=== PATIENT | female | born 1990 | race African-American/Black ===

== ENCOUNTER 2018-11-11 23:39 | Inpatient (IN) | payer OTHER ==
[~2018-11-11 23:39] MED LIST: DEXTROSE 5%-LACTATED RINGERS 1,000 ML IV SCH
[2018-11-12] MEDS ORDERED: CLINDAMYCIN 900 MG PREMIX IVPB 900 MG/50 ML BAG IVPB ONE (01:30)
[2018-11-12 02:31] LABS: BASO % 0.9 % (0-2.0); EOS % 0.3 % (0-4.5); HEMATOCRIT 32.2 % (32.4-45.2); HEMOGLOBIN 10.7 GM/dL (10.7-15.3); LYMPH % 22.3 % (8-40); MCH 28.6 pg (25.7-33.7); MCHC 33.3 g/dl (32.0-36.0); MEAN CELL VOLUME 86.1 fl (80-96); MEAN PLT VOLUME 10.2 fl (7.5-11.1); MONO % 15.5 % (3.8-10.2); PLATELET COUNT 241 K/MM3 (134-434); RBC 3.74 M/mm3 (3.60-5.2); RDW 12.6 % (11.6-15.6); WHITE BLOOD COUNT 7.9 K/mm3 (4.0-10.0)
[2018-11-12 02:48] LABS: INR 0.89 (0.83-1.09); PROTHROMBIN TIME (PATIENT) 10.5 SEC (9.7-13.0)
[2018-11-12 02:51] LABS: ACTIVATED PTT 30.3 SECONDS (25.2-36.5)
[2018-11-12 02:55] LABS: BLOOD UREA NITROGEN 6.5 mg/dL (7-18); CALCIUM 8.8 mg/dL (8.5-10.1); CREATININE 0.5 mg/dL (0.55-1.3)
[2018-11-12 03:51] VITALS: BMI 30.2
[2018-11-12] MEDS ORDERED: BUTORPHANOL TARTRATE 1 MG/ML VIAL ONE ×3 (04:02→08:33)
[2018-11-12] MEDS ORDERED: PROMETHAZINE HCL 25 MG/1 ML VIAL ONE ×2 (04:02→08:33)
[2018-11-12] MEDS ORDERED: BUTORPHANOL TARTRATE 1 MG/ML VIAL IVPB ONE ×2 (04:15→10:45)
[2018-11-12] MEDS ORDERED: PROMETHAZINE HCL 25 MG/1 ML VIAL IVPB ONE ×2 (04:15→10:45)
[2018-11-12] MEDS ORDERED: OXYTOCIN 30 UNITS in 0.9% NS 30 UNIT/500 ML INFUS.BAG IVPB ONE (06:21)
[2018-11-12] MEDS ORDERED: OXYTOCIN 30 UNITS in 0.9% NS 30 UNIT/500 ML INFUS.BAG IVPB SCH (06:45)
[2018-11-12] MEDS ORDERED: CLINDAMYCIN 600MG PREMIX IVPB 600 MG/50 ML BAG IVPB SCH (07:30)
[2018-11-12] MEDS ORDERED: OXYTOCIN 20 UNITS in 0.9% NS 20 UNIT/1,000 ML INFUS.BAG IV ONE ×2 (08:36→13:23)
[2018-11-12] MEDS ORDERED: LIDOCAINE HCL 1% PRESERVATIVE FREE - 30ML VIAL ONE (08:36)
--- NOTE | 2018-11-12 09:20 | HP ---
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: No: Alzheimer's, CVA, Dementia, Migraine, Multiple Sclerosis, Peripheral Neuropathy, Parkinson's, Seizure, Syncope, TIA, Vertigo, Other Cardiovascular: No: AFIB, Aneurysm, Aortic Insufficiency, Aortic Stenosis, CAD, CHF, Deep Vein Thrombosis, HTN, Hyperlipdemia, UT, Mitral Insufficiency, Mitral Stenosis, Murmur, Pulmonary Hypertension, Other Pulmonary: No: Asthma, Bronchitis, Cancer, COPD, O2 Dependent, Pneumonia, Previously Intubated, Pulmonary Embolus, Pulmonary Fibrosis, Sleep Apnea, Other Gastrointestinal: No: Ascites, Cancer, Constipation, Crohn's Disease, Diverticulitis, Diverticulosis, Esophageal Varices, Gastritis, GERD, GI Bleed, Hemorrhoids, Hiatal Hernia, Inflamatory Bowel Disease, Irritable Bowel Disease, Pancreatitis, Peptic Ulcer Disease, Ulcerative Colitis, Other Hepatobiliary: No: Cirrhosis, Cholelithiasis, Cholecystitis, Choledocholithiasis , Hepatitis A, Hepatitis B, Hepatitis C, Other Renal/: No: Renal Failure, Renal Inusuff, BPH, Cancer, Hematuria, Hemodialysis , Neurogenic Bladder, Renal Calculi, UTI, Other Reproductive: No: Ectopic , Endometriosis, Fibroids, PID, Polycystic Ovary Syndrome, Postmenopausal, Other ...: 2 ...Para: 0 ...Term: 0 ...: 0 ...Spon : 0 ...Induced : 1 ...Multiple Gestation: 0 ... Weeks Gestation by Dates: 39.2 ...EDC by Dates: 11/16/18 Heme/Onc: No: Anemia, B12 Deficiency, Bleeding Disorder, Cancer, Current Chemotherapy, Current Radiation Therapy, Hemochromatosis, Hypercoaguable State, Myeloproliferative Synd, Sickle Cell Disease, Sickle Cell Trait, Thrombocytopenia, Other Infectious Disease: No: AIDS, C-Diff, Herpes Zoster, HIV, MRSA, STD's, Tuberculosis, VREF, Other Psych: No: Addictions, Anxiety, Bipolar, Depression, Panic, Psychosis, Schizophrenia, Other Musculoskeletal: No: Bursitis, Chronic low back pain, Hemiparesis, Hemiplegia, Osteoarthritis, Paraplegia, Other Rheumatology: No: Fibromyalgia, Gout, Lupus, Rheumatoid Arthritis, Sarcoidosis, Vasculitis, Other ENT: No: Allergic Rhinitis, Sinusitis, Other Endocrine: No: [place]'s Disease, [place]'s Disease, Diabetes Insipidus, Diabetes Mellitus, Hyperparathyroidism, Hyperthyroidism, Hypothyroidism, Osteopenia, SIADH, Other Dermatology: No: Basal Cell, Cellulitis, Eczema, Melanoma, Psoriasis, Squamous Cell, Other - Past Surgical History Past Surgical History: No: None, AAA Repair, AICD, Amputation, Appendectomy, Arthrosocopy, AV Fistula/Graft, Bariatric Surgery, Breast Biopsy, Bypass, CABG, Carotid Endarterectomy, Cataract Removal, Cholecystectomy, Colectomy, Colonoscopy, Colostomy, Craniotomy, , Cystectomy, Hernia Repair, Hysterectomy, Ileal Conduit, Ileosotomy, Joint Replacement, Kidney Transplant, Laminectomy, Liver Transplant, Mastectomy, Nephrectomy, Oopherectomy, Orchiectomy, Permanent Pacemaker, Prostatectomy, Splenectomy, Stent, Thoracotomy , TURP, Tonsillectomy, Tubal Ligation, Upper Endoscopy, Valve Replacement, Vasectomy, Vein Stripping/Ligation Hx Myomectomy: No Hx Transabdominal Cerclage: No - Advance Directives Advance Directives: No: Living Will, Health Care Proxy, DNR, Organ Donor, Tissue Donor, MOLST - Smoking History Smoking history: Never smoked Have you smoked in the past 12 months: No - Alcohol/Substance Use Hx Alcohol Use: No History of Substance Use: reports: None - Social History Usual Living Arrangement: Yes: With Spouse Do you think of yourself as: Declined to answer ADL: Independent History of Recent Travel: No Home Medications - Allergies Allergies/Adverse Reactions: Allergies Allergy/AdvReac Type Severity Reaction Status Date / Time amoxicillin Allergy Verified 11/12/18 01:46 - Home Medications Home Medications: Ambulatory Orders Vitamins (Sjr) - 1 tab PO DAILY 11/12/18 Family Medical History Family History: Unable to Obtain Review of Systems - Review of Systems Constitutional: reports: No Symptoms Eyes: reports: No Symptoms HENT: reports: No Symptoms Neck: reports: No Symptoms Cardiovascular: reports: No Symptoms Respiratory: reports: No Symptoms Gastrointestinal: reports: No Symptoms Genitourinary: reports: No Symptoms Breasts: reports: No Symptoms Reported Musculoskeletal: reports: No Symptoms Integumentary: reports: No Symptoms Neurological: reports: No Symptoms Endocrine: reports: No Symptoms Hematology/Lymphatic: reports: No Symptoms Psychiatric: reports: No Symptoms Physical Exam - Maternity Vital Signs: Vital Signs Temperature 98.3 F 11/12/18 08:00 Pulse Rate 78 11/12/18 08:00 Respiratory Rate 20 11/12/18 08:00 Blood Pressure 119/65 11/12/18 08:00 O2 Sat by Pulse Oximetry (%) Constitutional: Yes: Well Nourished, No Distress, Calm Eyes: Yes: WNL, Conjunctiva Clear, EOM Intact HENT: Yes: WNL, Atraumatic, Normocephalic Neck: Yes: WNL, Supple, Trachea Midline Cardiovascular: Yes: WNL, Regular Rate and Rhythm Lungs: Clear to auscultation Breast(s): Yes: WNL - Abdominal Exam/OB Fundal Height: 38 Number of Fetuses: Single Presentation: Vertex Contractions: Yes Regularity: Irregular Intensity: Mild/Mod Monitor Mode: External Heart Rate Location: [facility] Category: I Accelerations: Uniform Decelerations: None - Vaginal Exam/OB Vaginal Bleediing: No Speculum Exam: Yes Dilatation (cm): 2 Amniotic Membrane Status: Ruptured Amniotic Fluid: Yes: Clear Presentation: Vertex/Position Station: -1 - Physical Exam Musculoskeletal: Yes: WNL Extremities: Yes: WNL Edema: Yes Edema: LUE: 1+, RUE: 1+, LLE: 1+, RLE: 1+ Integumentary: Yes: WNL Deep Tendon Reflex Grade: Normal +2 ...Motor Strength: WNL Psychiatric: Yes: WNL, Alert, Oriented - Labs Lab Results: CBC, BMP 11/12/18 02:10 11/12/18 02:10 Assessment/Plan for labor
--- NOTE | 2018-11-12 09:25 | PN ---
Progress Note (short form) - Note Progress Note: 630 am 3 cm , 80 %, -1, continue laboring w pitocin, stadol given,
--- NOTE | 2018-11-12 09:26 | PN ---
Progress Note (short form) - Note Progress Note: 830 am, 8 cm, 100%, +1 , stadol given, continue pitocin
[2018-11-12] MEDS ORDERED: METHYLERGONOVINE MALEATE 0.2 MG/1 ML AMP IM PRN (10:19)
[2018-11-12] MEDS ORDERED: oxyCODONE HCL 5 MG TABLET PO PRN (10:19)
[2018-11-12] MEDS ORDERED: IBUPROFEN 600 MG TABLET (FP) PO PRN (10:19)
[2018-11-12] MEDS ORDERED: BISACODYL 10 MG SUPP.RECT RC PRN (10:19)
[2018-11-12] MEDS ORDERED: BENZOCAINE 28 GM HEMORRHOIDAL OINTMENT TP PRN (10:19)
[2018-11-12] MEDS ORDERED: BENZOCAINE 20% 57 GM BOTTLE TP PRN (10:19)
[2018-11-12] MEDS ORDERED: ACETAMINOPHEN 325 MG TABLET (FP) PO PRN (10:19)
[2018-11-12] MEDS ORDERED: WITCH HAZEL 50% (TUCKS) 40 PAD/JAR PAD TP PRN (10:19)
--- NOTE | 2018-11-12 10:26 | PN ---
Delivery - Delivery Vaginal Delivery: No Problems Type of Anesthesia: Local Episiotomy/Laceration: 1st degree EBL (cc): 450 Delivery, Single - Stages of Labor Date 1st Stage Initiatied: 11/11/18 Time 1st Stage Initiated: 22:00 Date 2nd Stage Initiated: 11/12/18 Time 2nd Stage Initiated: 09:30 Date of Delivery: 11/12/18 Time of Delivery: 09:58 Date Placenta Delivered: 11/12/18 Time Placenta Delivered: 10:10 Placenta: Yes: Spontaneous - Condition of Infant Language Specialist/Farm Technician Present: No Infant Gender: Female Position: Right, OA Total Hours ROM (Hrs/Mins): 13 hr - 1 Minute Total Score: 9 5 Minutes Total Score: 9 - Reynolds Feeding Plan Initial Plan: Elected not to breastfeed exclusively throughout hospitalization Benefits of Exclusively reinforced: Yes Remarks - Remarks Remarks: no epidural, no complications
[2018-11-12] MEDS ORDERED: OXYTOCIN 20 UNITS in 0.9% NS 20 UNIT/1,000 ML INFUS.BAG IV SCH (10:30)
[2018-11-13 07:19] LABS: BASO % 0.1 % (0-2.0); EOS % 0.4 % (0-4.5); HEMATOCRIT 26.3 % (32.4-45.2); HEMOGLOBIN 8.6 GM/dL (10.7-15.3); MCH 28.4 pg (25.7-33.7); MCHC 32.8 g/dl (32.0-36.0); MEAN CELL VOLUME 86.5 fl (80-96); MEAN PLT VOLUME 9.9 fl (7.5-11.1); MONO % 12.4 % (3.8-10.2); NEUT % 71.1 % (42.8-82.8); PLATELET COUNT 209 K/MM3 (134-434); RBC 3.04 M/mm3 (3.60-5.2); WHITE BLOOD COUNT 12.4 K/mm3 (4.0-10.0)
[2018-11-13] MEDS ORDERED: DIPHTH,PERTUSS(ACELL),TET 0.5 ML DISP.SYRIN IM ONE (10:00)
--- NOTE | 2018-11-13 19:28 | PN ---
Post Progress Note Post Day: 2 Type of Delivery: Vital Signs: Vital Signs Temperature 98.8 F 11/13/18 09:00 Pulse Rate 92 H 11/13/18 09:00 Respiratory Rate 20 11/13/18 09:00 Blood Pressure 102/59 L 11/13/18 09:00 O2 Sat by Pulse Oximetry (%) 99 11/12/18 11:00 Breast Exam: Yes: Soft Uterus: Yes: Fundus Firm Abdomen/GI: Yes: Abdomen soft, Passing flatus, Tolerating PO Lochia: Yes: Serosa Lochia, amount: Small Extremities: Yes: Calves non-tender Perineum: Yes: Laceration Activity: Ambulating - Labs Labs: CBC WBC 12.4 K/mm3 (4.0-10.0) H 11/13/18 06:25 RBC 3.04 M/mm3 (3.60-5.2) L 11/13/18 06:25 Hgb 8.6 GM/dL (10.7-15.3) L 11/13/18 06:25 Hct 26.3 % (32.4-45.2) L D 11/13/18 06:25 MCV 86.5 fl (80-96) 11/13/18 06:25 MCH 28.4 pg (25.7-33.7) 11/13/18 06:25 MCHC 32.8 g/dl (32.0-36.0) 11/13/18 06:25 RDW 13.0 % (11.6-15.6) 11/13/18 06:25 Plt Count 209 K/MM3 (134-434) 11/13/18 06:25 MPV 9.9 fl (7.5-11.1) 11/13/18 06:25 Absolute Neuts (auto) 8.8 K/mm3 (1.5-8.0) H 11/13/18 06:25 Neutrophils % 71.1 % (42.8-82.8) 11/13/18 06:25 Lymphocytes % 16.0 % (8-40) D 11/13/18 06:25 Monocytes % 12.4 % (3.8-10.2) H 11/13/18 06:25 Eosinophils % 0.4 % (0-4.5) 11/13/18 06:25 Basophils % 0.1 % (0-2.0) 11/13/18 06:25 Nucleated RBC % 0 % (0-0) 11/13/18 06:25 Assessment/Plan dc pt home tomorrow
--- NOTE | 2018-11-13 19:31 | DS ---
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 Vital Signs: Vital Signs Temperature 98.8 F 11/13/18 09:00 Pulse Rate 92 H 11/13/18 09:00 Respiratory Rate 20 11/13/18 09:00 Blood Pressure 102/59 L 11/13/18 09:00 O2 Sat by Pulse Oximetry (%) 99 11/12/18 11:00 Constitutional: Yes: Well Nourished, No Distress, Calm Eyes: Yes: WNL, Conjunctiva Clear, EOM Intact HENT: Yes: WNL, Atraumatic, Normocephalic Neck: Yes: WNL, Supple, Trachea Midline Cardiovascular: Yes: WNL, Regular Rate and Rhythm Respiratory: Yes: WNL, Regular, CTA Bilaterally Gastrointestinal: Yes: WNL, Normal Bowel Sounds, Soft ...Rectal Exam: Yes: WNL Renal/: Yes: WNL Pelvis: Yes: WNL External Genitalia: Yes: Normal Internal Exam Deferred: Yes Vaginal Exam: Yes: Normal Cervix: Yes: Normal Uterus: Yes: Normal ....Post : Yes: Uterus firm, Uterus non-tender Breast(s): Yes: WNL Musculoskeletal: Yes: WNL Extremities: Yes: WNL Edema: Yes Edema: LUE: 1+, RUE: 1+, LLE: 1+, RLE: 1+ Integumentary: Yes: WNL Wound/Incision: Yes: Clean/Dry, Well Approximated Neurological: Yes: WNL, Alert, Oriented ...Motor Strength: WNL Psychiatric: Yes: WNL, Alert, Oriented Labs: CBC, BMP 11/13/18 06:25 11/12/18 02:10 Delivery - Delivery Vaginal Delivery: No Problems Type of Anesthesia: Local Episiotomy/Laceration: Perineal Extension/lac, 1st degree EBL (cc): 450 Delivery, Single - Stages of Labor Date 1st Stage Initiatied: 11/11/18 Time 1st Stage Initiated: 22:00 Date 2nd Stage Initiated: 11/12/18 Time 2nd Stage Initiated: 09:30 Date of Delivery: 11/12/18 Time of Delivery: 09:58 Time Placenta Delivered: 10:10 Placenta: Yes: Spontaneous - Condition of Clockmaker Apprentice/French Cord Binder Present: No Gender: Female Weight: 2.892 kg Position: Right, OA Total Hours ROM (Hrs/Mins): 13 hr - 1 Minute Total Score: 9 5 Minutes Total Score: 9 - Feeding Plan Initial Plan: Elected not to breastfeed exclusively throughout hospitalization Benefits of Exclusively reinforced: Yes Discharge Summary Problems reviewed: Yes Reason For Visit: LABOR Procedures: Principal: Hospital Course: good Plan of Treatment: dc pt home tomorrow Condition: Good - Instructions Diet, Activity, Other Instructions: regular Disposition: HOME - Home Medications Comprehensive Discharge Medication List: Ambulatory Orders Vitamins (Sjr) - 1 tab PO DAILY 11/12/18 Prescription Drug Monitoring Program (I-STOP) results: I-STOP reviewed and issues identified
[2018-11-13] MEDS ORDERED: SENNOSIDES/DOCUSATE COMBO (SENNA PLUS) TABLET (UD) PO PRN (22:00)
[2018-11-14 09:04] VITALS: BP 123/73; PULSE 90; TEMP 98
--- NOTE | 2018-11-14 09:35 | PN ---
Post Progress Note Post Day: 2 Type of Delivery: Vital Signs: Vital Signs Temperature 98 F 11/14/18 09:01 Pulse Rate 90 11/14/18 09:01 Respiratory Rate 20 11/14/18 09:01 Blood Pressure 123/73 11/14/18 09:01 O2 Sat by Pulse Oximetry (%) 99 11/12/18 11:00 Breast Exam: Yes: Soft Uterus: Yes: Fundus Firm Abdomen/GI: Yes: Abdomen soft, Passing flatus, Tolerating PO Lochia: Yes: Serosa Lochia, amount: Small Extremities: Yes: Calves non-tender Perineum: Yes: Intact Activity: Ambulating - Labs Labs: CBC WBC 12.4 K/mm3 (4.0-10.0) H 11/13/18 06:25 RBC 3.04 M/mm3 (3.60-5.2) L 11/13/18 06:25 Hgb 8.6 GM/dL (10.7-15.3) L 11/13/18 06:25 Hct 26.3 % (32.4-45.2) L D 11/13/18 06:25 MCV 86.5 fl (80-96) 11/13/18 06:25 MCH 28.4 pg (25.7-33.7) 11/13/18 06:25 MCHC 32.8 g/dl (32.0-36.0) 11/13/18 06:25 RDW 13.0 % (11.6-15.6) 11/13/18 06:25 Plt Count 209 K/MM3 (134-434) 11/13/18 06:25 MPV 9.9 fl (7.5-11.1) 11/13/18 06:25 Absolute Neuts (auto) 8.8 K/mm3 (1.5-8.0) H 11/13/18 06:25 Neutrophils % 71.1 % (42.8-82.8) 11/13/18 06:25 Lymphocytes % 16.0 % (8-40) D 11/13/18 06:25 Monocytes % 12.4 % (3.8-10.2) H 11/13/18 06:25 Eosinophils % 0.4 % (0-4.5) 11/13/18 06:25 Basophils % 0.1 % (0-2.0) 11/13/18 06:25 Nucleated RBC % 0 % (0-0) 11/13/18 06:25
== END 2018-11-14 13:05 | disposition home or self-care (01) | DRG 807 ==
LOC: JLDR 23:39 → J3W 11-12 13:30
PROVIDERS: ADMIT Obstetrics & Gynecology; ATTEND Obstetrics & Gynecology
PROC: 0HQ9XZZ Repair Perineum Skin, External Approach (ICD-10-PCS; principal; 2018-11-12)
PROC: 10E0XZZ Delivery of Products of Conception, External Approach (ICD-10-PCS; 2018-11-12)
DX: O70.0 First degree perineal laceration during delivery (principal); Z37.0 Single live birth; Z3A.39 39 weeks gestation of pregnancy
CPT/HCPCS: 36415; 59409; 80048; 85025; 85610; 85730; 86593; 86850; 86900; 86901; 87389; 90715